=== PATIENT | female | born 1985 | race Asian ===

== ENCOUNTER 2022-02-20 18:46 | Inpatient (IN) ==
[2022-02-20] MEDS ORDERED: LACTATED RINGER'S 1,000 ML IV PRN (18:58)
[2022-02-20] MEDS ORDERED: OXYTOCIN 30 UNITS/500 ML BAG IV PRN ×2 (18:58→19:00)
[2022-02-20] MEDS ORDERED: HYDROCORTISONE ACETATE 25 MG SUPP PR PRN (19:00)
[2022-02-20] MEDS ORDERED: DIPHTHERIA/TETANUS/PERTUSSIS 0.5 ML SYR/VIAL IM ONE (19:00)
[2022-02-20] MEDS ORDERED: BENZOCAINE 20% AER SPR 82.5 GM CAN EXT PRN (19:00)
[2022-02-20] MEDS ORDERED: ACETAMINOPHEN 325 MG TAB PO PRN (19:00)
--- NOTE | 2022-02-20 19:01 | Delivery Summary ---
Vaginal Delivery Summary Date of Service February 20, 2022 Vaginal Delivery Summary Delivery Note Called to see patient of Dr. Gray presenting to L&D fully dilated. She was examined with the vertex noted to be +3 with strong urge to push. Had SROM clear fluid 30 minutes prior to delivery. live female SABRINA over intact perineum with delayed cord clamping and Apgars 8/9 weight pending. Cord blood obtained followed by spontaneous delivery of intact placenta. No tears. EBL 100 ml. Final sponge and instrument count are correct. Mom and baby stable.
[2022-02-20 19:47] LABS: Basophils # (auto) 0.04 K/uL (0-0.2); Basophils % (auto) 0.3 %; Eosinophils # (auto) 0.01 K/uL (0-0.50); Eosinophils % (auto) 0.1 %; Hematocrit (blood only) 35.4 % (34.1-44.9); Hemoglobin 11.9 g/dl (12.0-16.0); Immature Granulocytes # (auto) 0.23 K/uL (0.00-0.02); Immature Granulocytes % (auto) 1.7 %; Lymphocytes # (auto) 0.78 K/uL (1.2-3.4); Lymphocytes % (auto) 5.7 %; Mean Corpuscular Hemoglobin 27.5 pg (25.0-34.0); Mean Corpuscular Hgb Conc 33.6 g/dL (32.0-36.0); Mean Corpuscular Volume 81.8 fL (80.0-100.0); Mean Platelet Volume 10.2 fL (9.4-12.3); Monocytes # (auto) 0.38 K/uL (0.24-0.82); Monocytes % (auto) 2.8 %; Neutrophils # (auto) 12.21 K/uL (1.4-6.5); Neutrophils % (auto) 89.4 %; Platelet Count 217 K/uL (130-400); RDW Coefficient of Variation 14.6 % (11.5-14.5); RDW Standard Deviation 43.1 fL (36.4-46.3); Red Blood Count 4.33 M/uL (3.93-5.22); White Blood Count 13.65 K/ul (4.8-10.8)
[2022-02-20] MEDS: IBUPROFEN 600 MG TAB PO PRN ×2 (19:53→23:55)
[2022-02-20] MEDS: DOCUSATE SODIUM 100 MG CAP PO SCH (20:54)
--- NOTE | 2022-02-21 06:11 | Obstetrical Progress Note ---
Date of Service <Lamar Rahman - Last Filed: 02/21/22 07:15> February 21, 2022 Assessment & Plan <Lamar Rahman - Last Filed: 02/21/22 07:15> (1) Status post vaginal delivery: continue OOB, ambulation, diet as tolerated <Saleem Gray MD - Last Filed: 02/21/22 08:08> (1) Status post vaginal delivery: Subjective <Lamar Rahman - Last Filed: 02/21/22 07:15> Janet is a 36 y/o female who is now PPD # 1 following spontaneous vaginal delivery at 39 2/7.Reports feeling well overall this morning. Moderate abdominal cramping, pain well managed on analgesics. Voiding. Tolerating meals overnight and able to ambulate some. Not passing gas and no bowel movements. Some persistent lochia with some improvement this morning. Breast feeding. Review of Systems Denies fever, chills, sweats Denies shortness of breath, difficulty breathing, chest pain, palpitations, chest pressure. Denies breast pain. Denies dysuria. Denies headache or changes in vision. Physical Exam <Lamar Rahman - Last Filed: 02/21/22 07:15> General: Alert, oriented. No acute distress. Cardiac: Regular rate and rhythm, no murmurs/rubs/gallops. Respiratory: Clear to auscultation bilaterally a/p, no wheezes/rales/rhonchi. No increased work of breathing. Symmetrical chest rise. No respiratory distress. Abdomen: Soft, nontender, nondistended. Bowel sounds present. Uterus: Uterine fundus firm, palpable 1 cm below umbilicus. Lower Extremities: No lower extremity edema or swelling. No deep calf pain. Ernestine's negative bilaterally. Results & Data ([facility]) <Lamar Rahman - Last Filed: 02/21/22 07:15> Vital Signs (Past 12 Hours) Vital Signs Temp Pulse Pulse Pulse Resp BP BP 02/21/22 03:30 36.8 C 89 18 116/74 02/20/22 23:30 36.4 C L 96 H 18 103/68 02/20/22 21:20 36.8 C 84 18 118/77 02/20/22 20:53 36.9 C 18 02/20/22 20:23 18 02/20/22 19:53 16 02/20/22 19:38 18 02/20/22 19:25 18 02/20/22 19:08 37.0 C 18 02/20/22 19:30 37.0 C 18 02/20/22 20:53 90 02/20/22 20:53 123/73 02/20/22 20:38 93 H 02/20/22 20:38 129/73 02/20/22 20:23 88 02/20/22 20:23 129/71 02/20/22 20:08 86 02/20/22 20:08 135/89 02/20/22 19:53 88 02/20/22 19:53 131/79 02/20/22 19:38 94 H 02/20/22 19:38 122/75 02/20/22 19:25 86 02/20/22 19:25 129/87 02/20/22 19:08 90 02/20/22 19:08 139/75 02/20/22 18:53 99 H 147/77 H Pulse Ox O2 Del Method 02/21/22 03:30 97 Room Air 02/20/22 23:30 97 Room Air 02/20/22 21:20 97 Room Air 02/20/22 20:53 02/20/22 20:23 02/20/22 19:53 02/20/22 19:38 02/20/22 19:25 02/20/22 19:08 02/20/22 19:30 02/20/22 20:53 02/20/22 20:53 02/20/22 20:38 02/20/22 20:38 02/20/22 20:23 02/20/22 20:23 02/20/22 20:08 02/20/22 20:08 02/20/22 19:53 02/20/22 19:53 02/20/22 19:38 02/20/22 19:38 02/20/22 19:25 02/20/22 19:25 02/20/22 19:08 02/20/22 19:08 02/20/22 18:53 <Saleem Gray MD - Last Filed: 02/21/22 08:08> Co-Signing Physician Notes Patient seen and evaluated with resident and agree with the above findings and plan. Patient doing well and stable for discharge if preferred Resident Activity Tracking <Lamar Rahman, DO - Last Filed: 02/21/22 07:15> Resident Involvement: Resident Care Provided Care Provided: OB Delivery (Post )
[2022-02-21] MEDS: IBUPROFEN 600 MG TAB PO PRN ×4 (06:50→23:19)
--- NOTE | 2022-02-21 08:04 | Delivery Summary ---
Vaginal Delivery Summary Date of Service February 21, 2022 Vaginal Delivery Summary Patient presented in active labor and delivered Precipitously via vaginal delivery. Delivery was kindly attended by Dr. Ya as I was in transit to hospital at time of delivery. Patient delivered without complication per verbal report. Patient had 100ml EBL and no laceration noted. Both mother and stable in doing well in the immediate post delivery period. [facility] Vaginal Delivery Charge Delivery Type Details:
[2022-02-21] MEDS: FERROUS SULFATE 325 MG TAB PO SCH (09:14)
[2022-02-21] MEDS: PRENATAL VITAMIN 1 TAB PO SCH (09:14)
[2022-02-21] MEDS: DOCUSATE SODIUM 100 MG CAP PO SCH ×2 (09:14→19:54)
[2022-02-21] MEDS ORDERED: bisacodyL 5 MG TABEC PO SCH (20:00)
--- NOTE | 2022-02-22 05:28 | Obstetrical Progress Note ---
Date of Service <Lamar Rahman - Last Filed: 02/22/22 06:37> February 22, 2022 Assessment & Plan <Lamar Rahman - Last Filed: 02/22/22 06:37> (1) Status post vaginal delivery: continue OOB, ambulation, diet as tolerated Discharge today <Joslyn Rose MD, FACOG - Last Filed: 02/22/22 07:52> (1) Status post vaginal delivery: Subjective <Lamar Rahman - Last Filed: 02/22/22 06:37> Janet is a 36 y/o female who is now PPD # 2 following vaginal delivery at 39 2/7. Reports feeling well overall this morning. Moderate abdominal cramping, worse while breast feeding pain well managed on analgesics. Voiding. Tolerating meals overnight and able to ambulate some. Is passing gas, but no bowel movements. Some persistent lochia with some improvement this morning. Breast feeding. Review of Systems Denies fever, chills, sweats Denies shortness of breath, difficulty breathing, chest pain, palpitations, chest pressure. Denies breast pain. Denies dysuria. Denies headache or changes in vision. Physical Exam <Lamar Rahman - Last Filed: 02/22/22 06:37> General: Alert, oriented. No acute distress. Cardiac: Regular rate and rhythm, no murmurs/rubs/gallops. Respiratory: Clear to auscultation bilaterally a/p, no wheezes/rales/rhonchi. No increased work of breathing. Symmetrical chest rise. No respiratory distress. Abdomen: Soft, nontender, nondistended. Bowel sounds present. Uterus: Uterine fundus firm, palpable 1 cm below umbilicus. Lower Extremities: No lower extremity edema or swelling. No deep calf pain. Ernestine's negative bilaterally. Results & Data ([facility]) <Lamar Rahman - Last Filed: 02/22/22 06:37> Vital Signs (Past 12 Hours) Vital Signs Temp Pulse Resp BP Pulse Ox O2 Del Method 02/21/22 23:16 36.6 C 87 16 107/73 98 Room Air 02/21/22 19:50 36.7 C 88 16 108/70 96 Room Air <Joslyn Rose MD, FACOG - Last Filed: 02/22/22 07:52> Co-Signing Physician Notes Resident Physician Supervision Note: I interviewed and examined the patient. Discussed with Dr. Rahman and agree with findings and plan as documented in the note. Any exceptions or clarifications are listed here: [None] Documented By: Joslyn Rose MD, FACOG Resident Activity Tracking <Lamar Rahman DO - Last Filed: 02/22/22 06:37> Resident Involvement: Resident Care Provided Care Provided: OB Delivery (Post )
[2022-02-22 07:05] LABS: Hematocrit (blood only) 30.2 % (34.1-44.9); Hemoglobin 10.2 g/dl (12.0-16.0)
[2022-02-22] MEDS: IBUPROFEN 600 MG TAB PO PRN ×2 (08:04→13:32)
[2022-02-22] MEDS: PRENATAL VITAMIN 1 TAB PO SCH (08:04)
[2022-02-22] MEDS: DOCUSATE SODIUM 100 MG CAP PO SCH (08:04)
[2022-02-22] MEDS: FERROUS SULFATE 325 MG TAB PO SCH (08:04)
[2022-02-22] MEDS ORDERED: bisacodyL 10 MG SUPP PR PRN (09:00)
== END 2022-02-22 14:00 | disposition home or self-care (01) | DRG 807 ==
LOC: OPB 18:46 → 4S1 18:48 → 4E2 21:38